=== PATIENT | female | born 1995 | race Caucasian/White ===

== ENCOUNTER 2018-09-07 15:23 | Emergency (ER) | payer OTHER, SELFPAY ==
[2018-09-07 15:26] VITALS: BP 163/101; PULSE 71; RESP 20; TEMP 36.6; O2SAT 98
[2018-09-07] MEDS: KETOROLAC 60 MG/2 ML VIAL IM (16:08)
--- NOTE | 2018-09-07 16:29 | ED_ITS ---
HPI - Back Pain/Injury <JEANMARIE Delarosa - Last Filed: 09/07/18 16:34> General Chief Complaint: Back Pain/Injury Stated Complaint: states bad nerve pain in her back Time Seen by Provider: 09/07/18 15:47 Source: patient Mode of arrival: ambulatory Limitations: no limitations History of Present Illness HPI Narrative: pt states that since her c section and epidural years ago, she get random back pain and numbness down R leg, toradol helps MD Complaint: back pain Onset (ago): day(s) (today) Duration: constant Similar Symptoms Previously: Yes Location: lumbar spine and sacrum Severity: moderate Quality: sharp and tingling Radiation: buttocks and right leg Relieving factors: none Exacerbating factors: movement and walking Context: other Associated symptoms: denies other symptoms Related Data Home Medications Medication Instructions Recorded Confirmed acetaminophen 1,000 mg PO TID #0 07/27/17 Previous Rx's Medication Instructions Recorded amoxicillin-pot clavulanate 875 mg PO BID 14 Days #0 tab 08/13/17 [Augmentin] ketorolac 10 mg PO Q6H PRN 5 Days #14 tab 09/07/18 Allergies Allergy/AdvReac Type Severity Reaction Status Date / Time No Known Allergies Allergy Uncoded 08/28/17 12:41 Review of Systems <JEANMARIE Delarosa - Last Filed: 09/07/18 16:34> Constitutional Reports as per HPI, Reports system reviewed and no additional complaints, except as docu and Denies weakness ENT Ears, Nose, Mouth, and Throat: Denies neck pain Cardiovascular Denies chest pain and Denies dyspnea Respiratory Denies dyspnea Gastrointestinal Gastrointestinal: Denies abdominal pain Genitourinary Denies hematuria, Denies difficulty voiding and Denies pelvic pain Musculoskeletal Denies abnormal gait, Reports back pain and Denies neck pain Neurologic Denies abnormal gait, Denies sensory deficit and Denies weakness PFSH <JEANMARIE Delarosa - Last Filed: 09/07/18 16:34> Social History Smoking Status: Never smoker Social History Smoking Status: Never smoker Exam <JEANMARIE Delarosa - Last Filed: 09/07/18 16:34> Initial Vital Signs Initial Vital Signs: Vital Signs Temperature 97.8 F 09/07/18 15:26 Pulse Rate 71 09/07/18 15:26 Respiratory Rate 20 09/07/18 15:26 Blood Pressure 163/101 H 09/07/18 15:26 Pulse Oximetry 98 09/07/18 15:26 Const General: cooperative, healthy appearing, comfortable, well developed and well groomed Nutritional Appearance: average body habitus Orientation: alert, awake and oriented x3 HENMT Head: normal to inspection and normocephalic Ears: hearing grossly normal bilaterally, external ears normal, TM's normal bilaterally and mastoids normal Nose: external nose normal and nares normal Face and sinus: normal facial exam, sinuses nontender and face symmetric Mouth: oral mucosae normal, lip normal, tongue normal, oropharynx normal and moist mucous membranes Teeth and gingiva: dentition normal and gingiva normal Throat: posterior oropharynx normal, tonsils normal and uvula midline Eyes General: appearance normal, both eyes and all related structures Visual Bell: normal visual bell by confrontation Eyelids: eyelids normal Conjunctivae: conjunctivae normal Sclera: sclerae normal Pupils: PERRL EOM: EOM intact bilaterally Neck Neck: normal visual inspection, full ROM, no meningeal signs, trachea midline, supple and No lymphadenopathy Chest Chest: normal inspection of the chest Resp Effort & Inspection: normal respiratory effort and able to speak in complete sentences Auscultation: clear to auscultation bilaterally Cardio Rate: regular rate Rhythm: regular rhythm Heart Sounds: S1 normal and S2 normal Back/Spine/Pelvis Back: normal to inspection, No back tenderness and No CVA tenderness Cervical Spine: cervical ROM normal Thoracic/Lumbar Spine: thoraco-lumbar ROM normal and No lumbar spinal tenderness Sacroiliac Joints: nontender Skin General: no rashes or lesions noted, elasticity normal, turgor normal and dry skin Neuro General: alert, awake, oriented x3 and meningeal signs present Cognition: normal cognition Speech: speech normal Gait: normal gait Motor: muscle tone normal throughout Sensory Exam: no sensory deficits noted Extrem General: normal to inspection and full ROM Psych Appearance: grossly normal and well kempt Mental Status: mental status grossly normal Speech and Movement: speech and movement normal Mood: congruent mood Affect: normal affect Attitude: cooperative Thought Process: normal Thought Content: normal Judgment: judgment good <Naomi Stahl, DO - Last Filed: 09/08/18 07:48> Initial Vital Signs Initial Vital Signs: Vital Signs Temperature 97.8 F 09/07/18 15:26 Pulse Rate 71 09/07/18 15:26 Respiratory Rate 20 09/07/18 15:26 Blood Pressure 163/101 H 09/07/18 15:26 Pulse Oximetry 98 09/07/18 15:26 Course <JEANMARIE Delarosa - Last Filed: 09/07/18 16:34> Orders Ordered: Discontinued Medications Ketorolac Tromethamine (Toradol) 60 mg IM NOW ONE Stop: 09/07/18 15:48 Last Admin: 09/07/18 16:08 Dose: 60 mg Vital Signs - 8 hr 09/07/18 15:26 Temperature 97.8 F Pulse Rate 71 Respiratory Rate 20 Blood Pressure 163/101 H Pulse Oximetry 98 <Naomi Stahl DO - Last Filed: 09/08/18 07:48> Orders Ordered: Discontinued Medications Ketorolac Tromethamine (Toradol) 60 mg IM NOW ONE Stop: 09/07/18 15:48 Last Admin: 09/07/18 16:08 Dose: 60 mg Vital Signs - 8 hr 09/07/18 15:26 Temperature 97.8 F Pulse Rate 71 Respiratory Rate 20 Blood Pressure 163/101 H Pulse Oximetry 98 MDM - Back Pain/Injury <JEANMARIE Delarosa - Last Filed: 09/07/18 16:34> Differential Diagnosis Differential diagnosis: Likely lumbar radiculopathy, sciatica, strain of lumbar region, renal colic and pyelonephritis Discharge Plan Departure Patient Disposition: Home Clinical Impression: Low back pain, Sciatica Discharge Date/Time: 09/07/18 16:49 Interventions: ED Discharge Assessment Last Done: 09/07/18 16:47 Instructions: DI for Low Back Pain, DI for Back Pain With Sciatica Prescriptions: New ketorolac 10 mg tablet 10 mg PO Q6H PRN (Reason: pain) 5 Days Qty: 14 RF: 0 No Action acetaminophen 325 MG tablet 1,000 mg PO TID Qty: 0 RF: 0 amoxicillin-pot clavulanate [Augmentin] 875 MG/125 MG tablet 875 mg PO BID 14 Days Qty: 0 RF: 0 Referrals: Donato Espinoza PA-C [Advanced Remote Sensing Technologist] - Tru,Denilson, PA-C [Advanced Remote Sensing Technologist] - Cayden Rivera MD [Non-Staff] - Kemi Saunders DO [Physician] - (follow up in 3-5 days as needed for continued back pain) <Naomi Stahl DO - Last Filed: 09/08/18 07:48> Cosign ED Attending Cosignature Attestation: I was immediately available in the department for consultation. This documentation has been reviewed and I agree with assessment and plan. Supervised by Naomi Stahl DO
[2018-09-07 16:47] VITALS: BP 169/105; PULSE 60; O2SAT 100
== END 2018-09-07 16:49 | disposition home or self-care (01) ==
PROVIDERS: Emergency Provider Nurse Practitioner
DX: M54.30 Sciatica, unspecified side (principal)
CPT/HCPCS: 96372; 99282; 99283; J1885

== ENCOUNTER 2020-01-20 13:11 | Emergency (ER) | payer OTHER, SELFPAY ==
[2020-01-20] VITALS (12 sets, daily range): BP systolic 128–182; BP diastolic 74–99; PULSE 48–60; RESP 18–20; TEMP 36.9; O2SAT 95–100
--- NOTE | 2020-01-20 14:42 | ED.PREGNANCY ---
HPI - <Carolee aGleano PA-C - Last Filed: 01/20/20 21:17> General Chief complaint: Urogenital-Female Stated complaint: right pelvic pain/nausea/chills x2 days Time Seen by Provider: 01/20/20 14:41 Source: patient Mode of arrival: Ambulatory History of Present Illness HPI Narrative: 24-year-old , hx c-sections and tubal ligation presents with complaints of right lower quadrant abdominal pain and nausea, and reduced appetite in the setting of her period. She has been having very sharp stabbing feeling pains on the right side low down near her head that have become so intense at times that she has had to cry due to the pain, this occurred on Saturday evening and then again when she was driving. Her current period started on Saturday. She says her pain is about a 2 or 3/10 at present but was up to at least a 7/10 when she was having the intense sharp pains. These intense sharp pains have been continuing on and off today which is why she came in. she has been having nausea on and off all day today and for the last few days, she thinks that could be associated with pain. She states that she has been having more intense pain with her periods for the last 2 or 3 months, she says that they are regular occurring once a month lasting for 5-7 days. She says that they are very heavy she goes through 5-7 super plus tampons or pads in a day, and this has not changed, it has been this way for many years for her, she does endorse some yellowish looking and possibly a little bit smelly vaginal discharge that has been present on and off for the past few months as well. She has no concern for sexually transmitted infections and does not want be tested for these today. She is willing to be tested for bacterial vaginosis. She has been having normal bowel movements, her last 1 was this morning, she has been eating and drinking fine with a good appetite, she has no nausea or vomiting no urinary symptoms no flank pain. MD Complaint: abdominal pain (pelvic pain) and vaginal bleeding (menstrauting) Onset (ago): day(s) (4) Pain Consistency: constant and intermittent (sharp pains are intermittent) Location: pelvis Severity: moderate Severity scale (1-10): 3 Quality: Aching and Sharp Relieving factors: none Exacerbating factors: none Associated symptoms: nausea Vaginal discharge: other (has had some yellowish discharge sometimes in last few months that sometimes smells bad) Vaginal bleeding: heavy (normal period for her) Date of Last Menstrual Period: 01/17/20 Patient : No OB History - Previous Pregnancies: other (2 previous c-sections; tubal ligation) Related Data Home Medications Medication Instructions Recorded Confirmed acetaminophen 1,000 mg PO TID PRN #0 07/27/17 01/20/20 Previous Rx's Medication Instructions Recorded metronidazole 500 mg PO BID 7 Days #14 tab 01/20/20 ondansetron HCl [Zofran] 4 mg PO Q8H PRN #20 tab 01/20/20 oxycodone-acetaminophen [Percocet] 1 tab PO Q8H PRN #14 tab 01/20/20 Allergies Allergy/AdvReac Type Severity Reaction Status Date / Time No Known Allergies Allergy Uncoded 08/28/17 12:41 Review of Systems <Carolee Galeano PA-C - Last Filed: 01/20/20 21:17> Review of Systems Narrative: GENERAL: Denies chills, fatigue, malaise, fever, sweats. HEENT: Denies sinus pain, ear pain, sore throat, difficulty swallowing, dizziness. RESPIRATORY: Denies dyspnea, cough, wheezing, hemoptysis, sputum. CARDIOVASCULAR: Denies chest pain, palpitations, orthopnea, edema, GASTROINTESTINAL: Positive for nausea, and reduced appetite, negative for vomiting, positive for right-sided low pelvic abdominal pain, diarrhea, constipation, melena. : Denies dysuria, frequency, incontinence, hematuria, urinary retention. MUSCULOSKELETAL: denies weakness, joint pain, or bony pain SKIN: Denies rash, skin lesions, or other NEUROLOGIC: Denies weakness, headache, numbness, change in speech, confusion, seizures, incoordination. PSYCHIATRIC: No concerning psychosocial issues. 12 point review of systems is negative except for those stated above PMFSH - <Carolee Galeano PA-C - Last Filed: 01/20/20 21:17> Past Medical History Date of Last Menstrual Period: 01/17/20 Patient : No Exam <Carolee Galeano PA-C - Last Filed: 01/20/20 21:17> Narrative Exam Narrative: GENERAL: 24 year old patient appears stated age. Well-nourished, well-developed patient, in mild distress. HEAD: Atraumatic. Normocephalic. EYES: Pupils equal round and reactive. Extraocular motions intact. No scleral icterus. No injection or drainage. ENT: Nose without bleeding, purulent drainage. Throat without erythema, tonsillar hypertrophy or exudate. Airway patent. NECK: Trachea midline. Non tender CARDIOVASCULAR: Regular rate and rhythm without murmurs, gallops, or rubs. RESPIRATORY: Clear to auscultation. Breath sounds equal bilaterally. No wheezes, rales, or rhonchi. GASTROINTESTINAL: There is slight tenderness over the right pelvis area just medial to the ASIS, Abdomen otherwise soft, non-tender, nondistended. : FRANK Croft present for pelvic exam as online tutor. External genitalia are normal in appearance, on speculum exam there is scant dark blood in the vaginal vault, the vaginal veliz are pink without lesions, there is no notable vaginal discharge, cervix is normal in appearance. On bimanual exam there is right adnexal tenderness, no adnexal tenderness on the left, no cervical motion tenderness. EXTREMITIES: No edema or joint tenderness. BACK: Nontender without deformity or crepitance. No CVA/flank tenderness. NEURO: AOx3. SKIN: No rash or erythema of visible areas Initial Vital Signs Initial Vital Signs: Vital Signs Temperature 98.4 F 01/20/20 13:21 Pulse Rate 55 L 01/20/20 13:21 Respiratory Rate 18 01/20/20 13:21 Blood Pressure 157/99 H 01/20/20 13:21 Pulse Oximetry 100 01/20/20 13:21 <Silvestre Harris DO - Last Filed: 01/20/20 23:49> Initial Vital Signs Initial Vital Signs: Vital Signs Temperature 98.4 F 01/20/20 13:21 Pulse Rate 55 L 01/20/20 13:21 Respiratory Rate 18 01/20/20 13:21 Blood Pressure 157/99 H 01/20/20 13:21 Pulse Oximetry 100 01/20/20 13:21 Scores <Carolee Galeano PA-C - Last Filed: 01/20/20 21:17> GCS Phyllis coma scale eye opening: Spontaneous Covert coma scale verbal response: Orientated Covert coma scale motor response: Obey commands Phyllis coma scale total score: 15 Course <Carolee Galeano PA-C - Last Filed: 01/20/20 21:17> Orders Ordered: ED Orders 01/20/20 15:09 Complete Blood Count AUTO DIFF Stat Comprehensive Metabolic Panel Stat Lipase Stat Partial Thromboplastin Time Stat Prothrombin Time INR Stat 01/20/20 15:33 US pelvic complete Stat 01/20/20 18:05 Wet Prep Tric BV Manuela Stat Discontinued Medications Ketorolac Tromethamine (Toradol) 15 mg IV NOW ONE Stop: 01/20/20 18:15 Last Admin: 01/20/20 18:29 Dose: 15 mg Documented by: ALEENA Ondansetron HCl (Zofran) 4 mg IV NOW ONE Stop: 01/20/20 15:18 Last Admin: 01/20/20 15:25 Dose: 4 mg Documented by: KPEARSO Vital Signs Vital signs: Vital Signs - 8 hr 01/20/20 17:06 01/20/20 17:07 01/20/20 17:30 Pulse Rate 60 Respiratory Rate Blood Pressure 146/87 H 147/81 H Pulse Oximetry 95 100 100 01/20/20 18:13 01/20/20 18:30 01/20/20 19:33 Pulse Rate 57 L 51 L 58 L Respiratory Rate 20 Blood Pressure 128/78 159/85 H Pulse Oximetry 99 100 100 <Silvestre Harris DO - Last Filed: 01/20/20 23:49> Orders Ordered: ED Orders 01/20/20 15:09 Complete Blood Count AUTO DIFF Stat Comprehensive Metabolic Panel Stat Lipase Stat Partial Thromboplastin Time Stat Prothrombin Time INR Stat 01/20/20 15:33 US pelvic complete Stat 01/20/20 18:05 Wet Prep Tric BV Manuela Stat Discontinued Medications Ketorolac Tromethamine (Toradol) 15 mg IV NOW ONE Stop: 01/20/20 18:15 Last Admin: 01/20/20 18:29 Dose: 15 mg Documented by: PATONEOk Ondansetron HCl (Zofran) 4 mg IV NOW ONE Stop: 01/20/20 15:18 Last Admin: 01/20/20 15:25 Dose: 4 mg Documented by: KPEARSO Vital Signs Vital signs: Vital Signs - 8 hr 01/20/20 17:06 01/20/20 17:07 01/20/20 17:30 Pulse Rate 60 Respiratory Rate Blood Pressure 146/87 H 147/81 H Pulse Oximetry 95 100 100 01/20/20 18:13 01/20/20 18:30 01/20/20 19:33 Pulse Rate 57 L 51 L 58 L Respiratory Rate 20 Blood Pressure 128/78 159/85 H Pulse Oximetry 99 100 100 MDM - OB/Uterine Contractions <Carolee Galeano PA-C - Last Filed: 01/20/20 21:17> Lab Data Result diagrams: 01/20/20 15:09 01/20/20 15:09 Labs: Lab Results 01/20/20 01/20/20 01/20/20 Range/Units 14:31 15:09 15:09 WBC 5.4 (4.5-11.0) X10^3/uL RBC 4.30 (4.0-5.2) X10^6/uL Hgb 11.2 L (12.0-16.0) g/dL Hct 34.4 L (36-46) % MCV 79.9 L (80-100) fL MCH 26.0 (26-34) PG MCHC 32.5 (30-36) % RDW 18.8 H (11.6-14.8) % Plt Count 170 (150-400) X10^3/uL Neut % (Auto) 65.3 (50-75) % Lymph % (Auto) 25.8 (25-40) % [place] % (Auto) 4.8 (3-14) % Eos % (Auto) 3.1 (2-4) % Baso % (Auto) 1.0 (0-2) % Neut # (Auto) 3500 (0204-0567) /uL Lymph # (Auto) 1400 (8678-3736) /uL [place] # (Auto) 300 (0-900) /uL Eos # (Auto) 200 (0-450) /uL Baso # (Auto) 100 (0-100) /uL PT 13.2 H (10.1-12.7) SECONDS INR 1.2 (0.9-1.3) APTT 35 (26.4-36.2) SECONDS Sodium (137-145) mmol/L Potassium (3.4-5.1) mmol/L Chloride (98-107) mmol/L Carbon Dioxide (22-32) mmol/L BUN (7-17) mg/dL Creatinine (0.52-1.04) mg/dL Estimated GFR (>60) mL/min BUN/Creatinine Ratio (6-22) Glucose (70-100) mg/dL Calcium (8.4-10.2) mg/dL Total Bilirubin (0.2-1.3) mg/dL AST (14-36) IU/L ALT (<35) IU/L Alkaline Phosphatase (38-126) U/L Total Protein (6.3-8.2) g/dL Albumin (3.5-5.0) g/dL Globulin (1.7-4.1) g/dL Albumin/Globulin Ratio (1.0-2.8) Lipase (23-300) U/L Ur Chlamydia DNA (PCR) Not detected N gonorrhoeae DNA (PCR) Not detected 01/20/20 Range/Units 15:09 WBC (4.5-11.0) X10^3/uL RBC (4.0-5.2) X10^6/uL Hgb (12.0-16.0) g/dL Hct (36-46) % MCV (80-100) fL MCH (26-34) PG MCHC (30-36) % RDW (11.6-14.8) % Plt Count (150-400) X10^3/uL Neut % (Auto) (50-75) % Lymph % (Auto) (25-40) % [place] % (Auto) (3-14) % Eos % (Auto) (2-4) % Baso % (Auto) (0-2) % Neut # (Auto) (9915-8828) /uL Lymph # (Auto) (9884-8534) /uL [place] # (Auto) (0-900) /uL Eos # (Auto) (0-450) /uL Baso # (Auto) (0-100) /uL PT (10.1-12.7) SECONDS INR (0.9-1.3) APTT (26.4-36.2) SECONDS Sodium 138 (137-145) mmol/L Potassium 4.0 (3.4-5.1) mmol/L Chloride 105 (98-107) mmol/L Carbon Dioxide 26 (22-32) mmol/L BUN 11 (7-17) mg/dL Creatinine 0.72 (0.52-1.04) mg/dL Estimated GFR > 60.0 (>60) mL/min BUN/Creatinine Ratio 15.3 (6-22) Glucose 82 (70-100) mg/dL Calcium 9.3 (8.4-10.2) mg/dL Total Bilirubin 0.5 (0.2-1.3) mg/dL AST 23 (14-36) IU/L ALT 13 (<35) IU/L Alkaline Phosphatase 40 (38-126) U/L Total Protein 7.3 (6.3-8.2) g/dL Albumin 4.6 (3.5-5.0) g/dL Globulin 2.7 (1.7-4.1) g/dL Albumin/Globulin Ratio 1.7 (1.0-2.8) Lipase 38 (23-300) U/L Ur Chlamydia DNA (PCR) N gonorrhoeae DNA (PCR) Point of Care Testing Test Results Negative Urine Dip Bedside Urine Glucose Negative Bedside Urine Bilirubin - Negative Bedside Urine Ketone - Negative Urine Specific [place] 1.010 Bedside Urine Occult Blood + Bedside Urine pH 6.0 Bedside Urine Protein - Negative Bedside Urine Urobilinogen - Negative Bedside Urine Nitrite - Negative Bedside Urine Leukocytes - Negative Esterase Imaging Data US - WEB DEVELOPER PROGRAMMER: Attestation: I personally reviewed and interpreted this imaging study as follows: Radiologist's Impression: [address] [address] Ultrasound Report Signed Patient: Melinda Atkins LMR#: [id number] : 1995Acct:[id number] Age/Sex: 24 / FDate of Service: 01/20/20 Loc: ED Accession Number: [id number] Procedure: US pelvic complete Ordering Provider: Carolee Galeano P.A-C PROCEDURE: US PELVIC COMPLETE INDICATIONS: R sharp intermittent pelvic pain, hx tubal ligation/c-sections TECHNIQUE: Real-time scanning was performed of the pelvic organs, with image documentation. Additional endovaginal scanning was necessary due to incomplete visualization of the adnexal and endometrial structures by transabdominal scanning. COMPARISON: None. FINDINGS: Transabdominal scanning: A moderate amount of free pelvic fluid is seen within the pelvic cul-de-sac at the area of the patient's tenderness. Limited scanning through the kidneys shows no hydronephrosis. Endovaginal scanning: Uterus: Uterus is normal in size at 7.3 x 4.6 x 6.4 cm. The endometrium measures 7 mm in combined thickness. Ovaries: The right ovary measures 3.9 x 1.6 x 1.6 cm. The left ovary measures 3.1 x 1.6 x 1.6 cm. The ovaries have a normal sonographic appearance. No adnexal masses are seen. IMPRESSION: There is moderate free fluid seen within the pelvic cul-de-sac at the patient's area of tenderness. No additional pelvic ultrasound abnormality is seen. Dictated by: Memo Centeno M.D. on 01/20/2020 at 15:59 Approved by: Memo Centeno M.D. on 01/20/2020 at 16:01 MDM Narrative Medical decision making narrative: This is a 24-year-old woman with a history of heavy regular periods, 2 C sections and tubal ligation currently not who presents with complaint of right lower quadrant pain in the setting of her. Associated with nausea and reduced appetite. On initial exam she had very mild pain, labs were unremarkable, vitals unremarkable, after ultrasound exam the patient's pain increased significantly to a 5/10 she was provided with pain medicine, pelvic exam was performed and was remarkable only for right adnexal tenderness. Ultrasound revealed moderate free fluid in the in the right adnexa, no other abnormal findings. Did the findings of labs and imaging were discussed with patient, discussed extensively the value of obtaining testing for STIs, which the patient initially declined multiple times. While I have low suspicion that she has a PID based on her exam, this will be important to rule out, has as there are was not a clear cause for her pain. And she did have possibly abnormal/non-physiologic ultrasound findings with the free fluid. Discussed CT with the patient, however I do not feel strongly that this is warranted at this time, patient also does not feel strongly that she wants to have a CT today, she is very comfortable with the plan to return to the emergency department with any ongoing or worsening or new symptoms, will follow-up in the next 48 hours with her primary care, will also seek woman's health provider for follow-up. Is possible that her nausea and lack of appetite are hormone related associated with her period, however there is certainly also the possibility that she does have an early infectious abdominal or pelvic process that has simply not yielded abnormal findings on labs or vitals at this time. Her G and C is pending at time of discharge. Emergency return precautions provided, all questions answered. <Silvestre Harris DO - Last Filed: 01/20/20 23:49> Lab Data Labs: Lab Results 01/20/20 01/20/20 01/20/20 Range/Units 14:31 15:09 15:09 WBC 5.4 (4.5-11.0) X10^3/uL RBC 4.30 (4.0-5.2) X10^6/uL Hgb 11.2 L (12.0-16.0) g/dL Hct 34.4 L (36-46) % MCV 79.9 L (80-100) fL MCH 26.0 (26-34) PG MCHC 32.5 (30-36) % RDW 18.8 H (11.6-14.8) % Plt Count 170 (150-400) X10^3/uL Neut % (Auto) 65.3 (50-75) % Lymph % (Auto) 25.8 (25-40) % [place] % (Auto) 4.8 (3-14) % Eos % (Auto) 3.1 (2-4) % Baso % (Auto) 1.0 (0-2) % Neut # (Auto) 3500 (8621-4991) /uL Lymph # (Auto) 1400 (7149-6189) /uL [place] # (Auto) 300 (0-900) /uL Eos # (Auto) 200 (0-450) /uL Baso # (Auto) 100 (0-100) /uL PT 13.2 H (10.1-12.7) SECONDS INR 1.2 (0.9-1.3) APTT 35 (26.4-36.2) SECONDS Sodium (137-145) mmol/L Potassium (3.4-5.1) mmol/L Chloride (98-107) mmol/L Carbon Dioxide (22-32) mmol/L BUN (7-17) mg/dL Creatinine (0.52-1.04) mg/dL Estimated GFR (>60) mL/min BUN/Creatinine Ratio (6-22) Glucose (70-100) mg/dL Calcium (8.4-10.2) mg/dL Total Bilirubin (0.2-1.3) mg/dL AST (14-36) IU/L ALT (<35) IU/L Alkaline Phosphatase (38-126) U/L Total Protein (6.3-8.2) g/dL Albumin (3.5-5.0) g/dL Globulin (1.7-4.1) g/dL Albumin/Globulin Ratio (1.0-2.8) Lipase (23-300) U/L Ur Chlamydia DNA (PCR) Not detected N gonorrhoeae DNA (PCR) Not detected 01/20/20 Range/Units 15:09 WBC (4.5-11.0) X10^3/uL RBC (4.0-5.2) X10^6/uL Hgb (12.0-16.0) g/dL Hct (36-46) % MCV (80-100) fL MCH (26-34) PG MCHC (30-36) % RDW (11.6-14.8) % Plt Count (150-400) X10^3/uL Neut % (Auto) (50-75) % Lymph % (Auto) (25-40) % [place] % (Auto) (3-14) % Eos % (Auto) (2-4) % Baso % (Auto) (0-2) % Neut # (Auto) (2848-1682) /uL Lymph # (Auto) (6795-0839) /uL [place] # (Auto) (0-900) /uL Eos # (Auto) (0-450) /uL Baso # (Auto) (0-100) /uL PT (10.1-12.7) SECONDS INR (0.9-1.3) APTT (26.4-36.2) SECONDS Sodium 138 (137-145) mmol/L Potassium 4.0 (3.4-5.1) mmol/L Chloride 105 (98-107) mmol/L Carbon Dioxide 26 (22-32) mmol/L BUN 11 (7-17) mg/dL Creatinine 0.72 (0.52-1.04) mg/dL Estimated GFR > 60.0 (>60) mL/min BUN/Creatinine Ratio 15.3 (6-22) Glucose 82 (70-100) mg/dL Calcium 9.3 (8.4-10.2) mg/dL Total Bilirubin 0.5 (0.2-1.3) mg/dL AST 23 (14-36) IU/L ALT 13 (<35) IU/L Alkaline Phosphatase 40 (38-126) U/L Total Protein 7.3 (6.3-8.2) g/dL Albumin 4.6 (3.5-5.0) g/dL Globulin 2.7 (1.7-4.1) g/dL Albumin/Globulin Ratio 1.7 (1.0-2.8) Lipase 38 (23-300) U/L Ur Chlamydia DNA (PCR) N gonorrhoeae DNA (PCR) Point of Care Testing Test Results Negative Urine Dip Bedside Urine Glucose Negative Bedside Urine Bilirubin - Negative Bedside Urine Ketone - Negative Urine Specific [place] 1.010 Bedside Urine Occult Blood + Bedside Urine pH 6.0 Bedside Urine Protein - Negative Bedside Urine Urobilinogen - Negative Bedside Urine Nitrite - Negative Bedside Urine Leukocytes - Negative Esterase Discharge Plan Departure Patient Disposition: Home Clinical Impression: Pelvic pain, Bacterial vaginosis Discharge Date/Time: 01/20/20 19:34 Instructions: DI for Pelvic Pain Activity Restrictions/Additional Instructions: Thank you for letting us to be part of your care in the emergency department today. All of your labs were looking good, it does look like you have a mild bacterial vaginosis, and we are still waiting for a couple of your urine labs to results. If these are positive you will get a call back. Your ultrasound of your pelvis looked good you do have a moderate amount of free fluid in the area where you are having pain, this can be a normal finding and it may resolve on its own but it could indicate inflammation or possibly infection. As we discussed, based on your history, your labs and your exam we are not pursuing a CT scan today. However if your symptoms do not improve or if you have any new or worsening symptoms it is very important that you be re-evaluated. It is always possible that even though things looked good today in terms of your labs and your ultrasound your pain and symptoms could be related to an early process that could worsen and would need medical treatment. I want you to follow-up with your primary care provider or a woman's health provider in the next 48-72 hours for re-evaluation. And please come back to the emergency department if you have new or worsening symptoms. And providing and antinausea medicine a medicine for your bacterial vaginosis and is short course of stronger pain medicine although generally I recommend alternating Tylenol and ibuprofen for pain. There is no evidence of an emergent or life threatening illness at this time, but follow up with your doctor in 1-2 days is recommended nonetheless to continue to rule out serious underlying causes of your symptoms. Please call the office for an appointment. Please return to the Emergency Department for any worsening or persistent symptoms. Please take medications as directed. Prescriptions: New metronidazole 500 mg tablet 500 mg PO BID 7 Days Qty: 14 RF: 0 oxycodone-acetaminophen [Percocet] 5-325 mg tablet 1 tab PO Q8H PRN (Reason: pain) Qty: 14 RF: 0 ondansetron HCl [Zofran] 4 mg tablet 4 mg PO Q8H PRN (Reason: nausea and vomiting) Qty: 20 RF: 0 No Action acetaminophen 325 MG tablet 1,000 mg PO TID PRN (Reason: pain / fever) Qty: 0 RF: 0 <Silvestre Harris DO - Last Filed: 01/20/20 23:49> Cosign ED Attending Cosignature Attestation: I was immediately available in the department for consultation. This documentation has been reviewed and I agree with assessment and plan. Supervised by Silvestre Harris DO
[2020-01-20 15:16] LABS: Add Manual Diff / Slide Review NO; Basophils Absolute Auto 100 /uL (0-100); Eosinophils Absolute Auto 200 /uL (0-450); Eosinophils Percent Auto 3.1 % (2-4); Hematocrit 34.4 % (36-46); Hemoglobin 11.2 g/dL (12.0-16.0); Lymphocytes Absolute Auto 1400 /uL (1100-4500); Lymphocytes Percent Auto 25.8 % (25-40); Mean Corpuscular HGB Conc 32.5 % (30-36); Mean Corpuscular Volume 79.9 fL (80-100); Monocytes Absolute Auto 300 /uL (0-900); Monocytes Percent Auto 4.8 % (3-14); Neutrophils Absolute Auto 3500 /uL (1500-7000); Neutrophils Percent Auto 65.3 % (50-75); Platelet Count 170 X10^3/uL (150-400); Red Cell Distribution Width 18.8 % (11.6-14.8); White Blood Cell Count 5.4 X10^3/uL (4.5-11.0)
[2020-01-20 15:24] LABS: INR 1.2 (0.9-1.3); Prothrombin Time 13.2 SECONDS (10.1-12.7)
[2020-01-20] MEDS: ONDANSETRON 4 MG/2 ML INJ IV (15:25)
[2020-01-20 15:27] LABS: PTT Partial Thromboplastin Tim 35 SECONDS (26.4-36.2)
[2020-01-20 15:33] LABS: Alanine Aminotransferase 13 IU/L (<35); Albumin 4.6 g/dL (3.5-5.0); Albumin Globulin Ratio 1.7 (1.0-2.8); Alkaline Phosphatase 40 U/L (38-126); Aspartate Aminotransferase 23 IU/L (14-36); BUN Creatinine Ratio 15.3 (6-22); Bilirubin Total 0.5 mg/dL (0.2-1.3); Blood Urea Nitrogen 11 mg/dL (7-17); Calcium 9.3 mg/dL (8.4-10.2); Carbon Dioxide 26 mmol/L (22-32); Chloride 105 mmol/L (98-107); Estimated Glomerular Filt Rate > 60.0 mL/min (>60); Globulin 2.7 g/dL (1.7-4.1); Glucose 82 mg/dL (70-100); HEMOLYSIS < 15 (0-50); Lipase 38 U/L (23-300); Sodium 138 mmol/L (137-145); Total Protein 7.3 g/dL (6.3-8.2)
--- NOTE | 2020-01-20 15:33 | DI.US.S_ITS ---
PROCEDURE: US PELVIC COMPLETE INDICATIONS: R sharp intermittent pelvic pain, hx tubal ligation/c-sections TECHNIQUE: Real-time scanning was performed of the pelvic organs, with image documentation. Additional endovaginal scanning was necessary due to incomplete visualization of the adnexal and endometrial structures by transabdominal scanning. COMPARISON: None. FINDINGS: Transabdominal scanning: A moderate amount of free pelvic fluid is seen within the pelvic cul-de-sac at the area of the patient's tenderness. Limited scanning through the kidneys shows no hydronephrosis. Endovaginal scanning: Uterus: Uterus is normal in size at 7.3 x 4.6 x 6.4 cm. The endometrium measures 7 mm in combined thickness. Ovaries: The right ovary measures 3.9 x 1.6 x 1.6 cm. The left ovary measures 3.1 x 1.6 x 1.6 cm. The ovaries have a normal sonographic appearance. No adnexal masses are seen. IMPRESSION: There is moderate free fluid seen within the pelvic cul-de-sac at the patient's area of tenderness. No additional pelvic ultrasound abnormality is seen. Dictated by: Memo Centeno M.D. on 01/20/2020 at 15:59 Approved by: Memo Centeno M.D. on 01/20/2020 at 16:01
[2020-01-20] MEDS: KETOROLAC 60 MG/2 ML VIAL 15 MG IV (18:29)
[2020-01-20 21:03] LABS: Urine N gonorrhoeae NOT DETECTED
[2020-01-20 21:09] LABS: Urine Chlamydia NOT DETECTED
== END 2020-01-20 19:34 | disposition home or self-care (01) ==
PROVIDERS: Emergency Medicine; Emergency Provider Student in an Organized Health Care Education/Training Program
DX: N76.0 Acute vaginitis (principal); R10.2 Pelvic and perineal pain; R11.0 Nausea
CPT/HCPCS: 36415; 76856; 80053; 81003; 81025; 83690; 85025; 85610; 85730; 87210; 87491; 87591; 96374; 96375; 99284; J1885; J2405

== ENCOUNTER 2021-04-09 08:10 | Emergency (ER) | payer OTHER, SELFPAY ==
--- NOTE | 2021-04-09 08:30 | ED_ITS ---
HPI - General Adult General Chief complaint: Upper Respiratory Symptoms Stated complaint: Trouble swallowing, sore throat Time Seen by Provider: 04/09/21 08:11 Source: patient Mode of arrival: Ambulatory Limitations: no limitations History of Present Illness HPI narrative: Patient is a otherwise healthy 25-year-old female who is here for evaluation of a sore throat, problems swallowing her saliva because of the discomfort, right ear pain. No fevers. No cough. No problems breathing. It is both size in her throat but the right seems to be worse than the left. Related Data Home Medications Medication Instructions Recorded Confirmed acetaminophen 325 mg tablet 1,000 mg PO TID PRN #0 07/27/17 01/20/20 Previous Rx's Medication Instructions Recorded ondansetron HCl 4 mg tablet 4 mg PO Q8H PRN #20 tab 01/20/20 (Zofran) oxycodone-acetaminophen 5 mg-325 1 tab PO Q8H PRN #14 tab 01/20/20 mg tablet (Percocet) Allergies Allergy/AdvReac Type Severity Reaction Status Date / Time No Known Drug Allergies Allergy Verified 04/09/21 08:51 Review of Systems Constitutional Constitutional: Denies fever(s) ENT Ears, Nose, Mouth, and Throat: Reports as per HPI Respiratory Respiratory: Reports as per HPI and Reports system reviewed and no additional complaints, except as documented Gastrointestinal Gastrointestinal: Reports system reviewed and no additional complaints, except as documented Integumentary/Breasts Skin/Breast: Reports system reviewed and no additional complaints, except as documented Hematologic/Lymphatic On Anticoagulants: No Patient History Medical History Low back pain Piriformis syndrome of left side Strep pharyngitis Social History Smoking Status: Current every day smoker Smoking Status: Current every day smoker Exam Initial Vital Signs Initial Vital Signs: Vital Signs Temperature 99.1 F 04/09/21 08:39 Pulse Rate 71 04/09/21 08:39 Respiratory Rate 18 04/09/21 08:39 Blood Pressure 132/92 H 04/09/21 08:39 Pulse Oximetry 100 04/09/21 08:39 HENMT Head: normal to inspection and normocephalic Ears: TM's normal bilaterally Nose: external nose normal Mouth: oral mucosae normal Teeth and gingiva: dentition normal Throat: uvula midline and abnormal tonsil bilaterally erythema and exudates Neck Lymphatic: lymphadenopathy (The lateral anterior cervical lymph nodes) Resp Effort & Inspection: normal respiratory effort Skin General: no rashes or lesions noted Neuro General: patient alert, patient awake and moves all extremities Extrem General: normal to inspection Psych Appearance: well kempt Course Orders Ordered: ED Orders 04/09/21 08:49 COVID19 -Nasal swab/Pre-Proc Stat 04/09/21 08:53 Throat Culture Stat Discontinued Medications Dexamethasone (Dexamethasone 10 Mg/Ml Vial) 10 mg PO NOW ONE Stop: 04/09/21 08:49 Last Admin: 04/09/21 09:20 Dose: 10 mg Documented by: Penicillin G Benzathine (Penicillin G Benzathine 1,200,000 Unit/2 Ml Syringe) 1,200,000 unit IM NOW ONE Stop: 04/09/21 08:49 Last Admin: 04/09/21 09:20 Dose: 1,200,000 unit Documented by: Vital Signs Vital signs: Vital Signs - 8 hr 04/09/21 08:39 Temperature 99.1 F Pulse Rate 71 Respiratory Rate 18 Blood Pressure 132/92 H Pulse Oximetry 100 Medical Decision Making Lab Data Labs: Lab Results 04/09/21 Range/Units 09:07 SARS-CoV-2 (PCR) Negative (Negative) Point of Care Testing Rapid Strep A Negative Point of care testing: Point of Care Testing Rapid Strep A Negative MDM Narrative Medical decision making narrative: A Cent[facility] criteria 3. She did have a rapid strep test that was negative and we did obtain a throat culture. I did discuss options with the patient to include presumptively treating her for strep throat versus waiting for the culture to return. We did discuss the risks and benefits of this and the patient opted to be presumptively treated. We then discussed treatment options to include injection of penicillin verses oral antibiotics. The patient opted for the in jection. We will also treat with Decadron. 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 Patient was given return precautions and follow-up instructions. She expressed understanding and agreement. Discharge Plan Departure Patient Disposition: Home Clinical Impression: Pharyngitis Instructions: Sore Throat Activity Restrictions/Additional Instructions: You should be experiencing some improvement in the next couple days. Be sure to increase your fluid intake. You can take Tylenol for any fevers or body aches. Return to the emergency department for any new or worsening symptoms Prescriptions: No Action acetaminophen 325 MG tablet 1,000 mg PO TID PRN (Reason: pain / fever) Qty: 0 0RF oxycodone-acetaminophen [Percocet] 5-325 mg tablet 1 tab PO Q8H PRN (Reason: pain) Qty: 14 0RF ondansetron HCl [Zofran] 4 mg tablet 4 mg PO Q8H PRN (Reason: nausea and vomiting) Qty: 20 0RF
[2021-04-09 08:39] VITALS: BP 132/92; PULSE 71; RESP 18; TEMP 37.3; O2SAT 100; BMI 23.1
[2021-04-09] MEDS: PENICILLIN G BENZATHINE 1,200,000 UNIT/2 ML SYRINGE 1200000 UNIT IM (09:20)
[2021-04-09] MEDS: DEXAMETHASONE 10 MG/ML VIAL PO (09:20)
[2021-04-09 09:45] LABS: COVID19 -Nasal RAPID Negative (Negative)
[2021-04-09 10:02] VITALS: BP 117/74; PULSE 69; RESP 17; O2SAT 100
== END 2021-04-09 10:03 | disposition home or self-care (01) ==
PROVIDERS: Emergency Provider Emergency Medicine
DX: J02.9 Acute pharyngitis, unspecified (principal); Z20.822 Contact with and (suspected) exposure to COVID-19; F17.200 Nicotine dependence, unspecified, uncomplicated
CPT/HCPCS: 87070; 87077; 87147; 87635; 87880; 96372; 99283; 99284; C9803; J0561; J1100

== ENCOUNTER 2021-06-06 07:24 | Emergency (ER) | payer OTHER, SELFPAY ==
[2021-06-06 07:36] VITALS: PULSE 56; O2SAT 100
[2021-06-06 07:53] VITALS: BP 146/70; PULSE 52; RESP 18; TEMP 36.6; O2SAT 98; BMI 22.8
--- NOTE | 2021-06-06 07:56 | DI.RAD.S_ITS ---
PROCEDURE: XR CHEST 1V INDICATIONS: chest pain TECHNIQUE: One view of the chest was acquired. COMPARISON: None. FINDINGS: Surgical changes and devices: None. Lungs and pleura: Lungs are clear. No pleural effusions or pneumothorax. Mediastinum: Mediastinal contours appear normal. Heart size is normal. Bones and chest wall: No suspicious bony lesions. Overlying soft tissues appear unremarkable. IMPRESSION: No acute cardiopulmonary disease process. Dictated by: Dea Garner MD, PhD on 06/06/2021 at 8:06 Approved by: Dea Garner MD, PhD on 06/06/2021 at 8:07
[2021-06-06 08:00] VITALS: PULSE 52; RESP 21; O2SAT 100
--- NOTE | 2021-06-06 08:07 | ED_ITS ---
HPI - Syncope General Chief Complaint: Syncope Stated Complaint: fainted/convulsions/hit head Time Seen by Provider: 06/06/21 08:07 Source: patient Mode of arrival: Ambulatory Limitations: no limitations History of Present Illness HPI narrative: This is a 25-year-old female with known history of hypertension on lisinopril and iron supplements for anemia. Patient has been taking lisinopril for approximately 6 months. She is in process of the workup for her hypertension and she is quite young. Patient states today her had shoulder surgery yesterday they took off his sling and had moved his arm several time. She states she immediately felt lightheaded and nauseated sat down on the floor then went to the bathroom and sat down and passed out hitting her head. Patient states this occurred about an hour and half prior. She states she had a small amount of urine incontinence. No stool incontinence. She denies any chest pain or pressure. No shortness of breath. She has not had any persistent symptoms. She felt fine this morning when she woke. She has not had any abdominal, back flank pain. No dysuria urgency or frequency. No cold cough or congestion. She does have a little bit of headache after hitting her head. No numbness, tingling or weakness. She has felt a little bit lightheaded since being on lisinopril. She has had 1 prior syncopal episode when having sutures removed an d states she passed out hit her head and ended up having to have sutures in her head at that time. She states also when her initially broke his shoulder she states that made her feel very lightheaded as well. Patient has had x2 and a tubal ligation. No allergies. She vapes tobacco, no alcohol, no illicit. She is in the [employer] and he has primary care through them. Related Data Home Medications Medication Instructions Recorded Confirmed acetaminophen 325 mg tablet 1,000 mg PO TID PRN #0 07/27/17 01/20/20 Previous Rx's Medication Instructions Recorded ondansetron HCl 4 mg tablet 4 mg PO Q8H PRN #20 tab 01/20/20 (Zofran) oxycodone-acetaminophen 5 mg-325 1 tab PO Q8H PRN #14 tab 01/20/20 mg tablet (Percocet) Allergies Allergy/AdvReac Type Severity Reaction Status Date / Time No Known Drug Allergies Allergy Verified 06/06/21 07:53 Review of Systems Review of Systems ROS Unobtainable: All systems reviewed & are unremarkable except as noted in HPI and below Patient History Medical History Low back pain Piriformis syndrome of left side Strep pharyngitis Social History Smoking Status: Current every day smoker Smoking Status: Current every day smoker tobacco type: vaping alcohol intake frequency: a few times a week Substance Use Type: does not use Exam Narrative Exam Narrative: GEN: well nourished, well appearing female, alert and oriented x 3, patient appears to be in mild distress. HEENT: Atraumatic, pupils are equal round reactive to light, extraocular movements are intact, nares are clear, TMs are clear with no fluid, there is no conjunctival pallor. Throat is clear without any exudates, erythema, tonsillar enlargement or uvular deviation, no cervical vertebral tenderness. HEART: Regular rate and rhythm without murmur, clicks, rubs. LUNGS:Lungs clear to auscultation, no wheezes, rales, crackles, chest moves symmetrically ABD:bowel sounds normal, soft, non-tender, no guarding, rebound, rigidity, no masses noted, no hepatosplenomegaly :No CVA tenderness MSCL: Non-tender, no muscle atrophy, muscles strength 5/5 upper and lower extremities, full range of motion, normal gait NEURO:CN 2-12 intact, sensation normal SKIN: No rash, erythema or other skin changes. Initial Vital Signs Initial Vital Signs: Vital Signs Pulse Rate 56 L 06/06/21 07:36 Pulse Oximetry 100 06/06/21 07:36 Course Orders Ordered: ED Orders 06/06/21 07:40 Complete Blood Count AUTO DIFF Stat Comprehensive Metabolic Panel Stat Lipase Stat Magnesium Stat Troponin & CK Cardiac Panel Stat 06/06/21 07:48 EKG-12 Lead Stat 06/06/21 07:56 XR chest 1V Stat COVID19 -Nasal swab/Pre-Proc Stat Discontinued Medications Acetaminophen (Acetaminophen 325 Mg Tablet) 650 mg PO NOW ONE Stop: 06/06/21 09:01 Last Admin: 06/06/21 09:15 Dose: 650 mg Documented by: KENAN Vital Signs Vital signs: Vital Signs - 8 hr 06/06/21 08:00 06/06/21 08:30 06/06/21 09:00 Pulse Rate 52 L 54 L 56 L Respiratory Rate 21 22 22 Blood Pressure Pulse Oximetry 100 100 99 06/06/21 09:29 Pulse Rate Respiratory Rate Blood Pressure 136/87 Pulse Oximetry MDM - Syncope Lab Data Result diagrams: 06/06/21 07:40 06/06/21 07:40 Labs: Lab Results 06/06/21 06/06/21 06/06/21 Range/Units 07:40 07:40 07:56 WBC 4.6 (4.5-11.0) X10^3/uL RBC 4.26 (4.0-5.2) X10^6/uL Hgb 11.6 L (12.0-16.0) g/dL Hct 34.7 L (36-46) % MCV 81.6 (80-100) fL MCH 27.3 (26-34) PG MCHC 33.5 (30-36) % RDW 17.0 H (11.6-14.8) % Plt Count 163 (150-400) X10^3/uL Neut % (Auto) 45.3 L (50-75) % Lymph % (Auto) 40.7 H (25-40) % [place] % (Auto) 7.3 (3-14) % Eos % (Auto) 5.9 H (2-4) % Baso % (Auto) 0.8 (0-2) % Neut # (Auto) 2100 (7913-4374) /uL Lymph # (Auto) 1900 (3649-6427) /uL [place] # (Auto) 300 (0-900) /uL Eos # (Auto) 300 (0-450) /uL Baso # (Auto) 0 (0-100) /uL Sodium 138 (137-145) mmol/L Potassium 4.3 (3.4-5.1) mmol/L Chloride 107 (98-107) mmol/L Carbon Dioxide 26 (22-32) mmol/L BUN 13 (7-17) mg/dL Creatinine 0.71 (0.52-1.04) mg/dL Estimated GFR > 60.0 (>60) mL/min BUN/Creatinine Ratio 18.3 (6-22) Glucose 88 (70-100) mg/dL Calcium 9.0 (8.4-10.2) mg/dL Magnesium 2.0 (1.6-2.3) mg/dL Total Bilirubin 0.4 (0.2-1.3) mg/dL AST 27 (14-36) IU/L ALT 11 (<35) IU/L Alkaline Phosphatase 29 L (38-126) U/L Total Creatine Kinase 55 (30-135) U/L CK-MB (CK-2) TNP CK-MB (CK-2) Rel Index TNP Troponin I < 0.012 (0.01-0.034) ng/mL Total Protein 7.0 (6.3-8.2) g/dL Albumin 4.4 (3.5-5.0) g/dL Globulin 2.6 (1.7-4.1) g/dL Albumin/Globulin Ratio 1.7 (1.0-2.8) Lipase 46 (23-300) U/L SARS-CoV-2 (PCR) Negative (Negative) Imaging Data Chest x-ray: Radiologist's Impression: Launch?[place] [address] XRay Report Signed Patient: Melinda Atkins MR#: [id number] : 1995 Acct:[id number] Age/Sex: 25 / F Date of Service: 06/06/21 Loc: Accession Number: [id number] ?? Procedure: XR chest 1V Ordering Provider: Naomi Stahl D.O. PROCEDURE:? XR CHEST 1V ? INDICATIONS:? chest pain ? TECHNIQUE:? One view of the chest was acquired.? ? COMPARISON:? None. ? FINDINGS:? ? Surgical changes and devices:? None.? ? Lungs and pleura:? Lungs are clear.? No pleural effusions or pneumothorax.? ? Mediastinum:? Mediastinal contours appear normal.? Heart size is normal.? ? Bones and chest wall:? No suspicious bony lesions.? Overlying soft tissues appear unremarkable.? ? IMPRESSION:? No acute cardiopulmonary disease process. ? ? Dictated by: Dea Garner MD, PhD on 06/06/2021 at 8:06 ? ? Approved by: Dea Garner MD, PhD on 06/06/2021 at 8:07?? ECG Data Attestation: I personally reviewed and interpreted this ECG as follows: Prior ECG tracings: not available for review Interpretation: Sinus bradycardia with first-degree AV block. Rate of 57, P are 218 QRS 88 QTC 397. No acute ST change appreciated. No priors availabe for review. MDM Narrative Medical decision making narrative: This is a 25-year-old female with suspected vasovagal episode. Patient has had prior episodes when she had sutures removed and today her had shoulder surgery he is 1 day postop and had taken him out of his sling and working through range of motion when patient began to feel ill. Patient did have what sounds like a syncopal episode. EKG, chest x-ray and labs do not show major abnormalities. Patient has a mild headache which was treated with Tylenol. She does not have any acute changes her GCS or otherwise make me feel she has warrants a head CT patient discharged home with return precautions. Discharge Plan Departure Patient Disposition: Home Clinical Impression: Syncope Instructions: DI for Syncope in Adults (Fainting) Activity Restrictions/Additional Instructions: Follow-up with your physician for recheck. You may continue your medications as prescribed. You may take tylenol up to 650mg every 6 hours as needed. Please return for rapidly worsening headaches, persistent vomiting, passing out, new numbness, tingling or weakness, new chest pain or shortness of breath or other new or concerning symptoms. Prescriptions: No Action acetaminophen 325 MG tablet 1,000 mg PO TID PRN (Reason: pain / fever) Qty: 0 0RF oxycodone-acetaminophen [Percocet] 5-325 mg tablet 1 tab PO Q8H PRN (Reason: pain) Qty: 14 0RF ondansetron HCl [Zofran] 4 mg tablet 4 mg PO Q8H PRN (Reason: nausea and vomiting) Qty: 20 0RF
[2021-06-06 08:28] LABS: Add Manual Diff / Slide Review NO; Basophils Absolute Auto 0 /uL (0-100); Basophils Percent Auto 0.8 % (0-2); Eosinophils Absolute Auto 300 /uL (0-450); Eosinophils Percent Auto 5.9 % (2-4); Hematocrit 34.7 % (36-46); Hemoglobin 11.6 g/dL (12.0-16.0); Lymphocytes Absolute Auto 1900 /uL (1100-4500); Lymphocytes Percent Auto 40.7 % (25-40); Mean Corpuscular HGB Conc 33.5 % (30-36); Mean Corpuscular Hemoglobin 27.3 PG (26-34); Mean Corpuscular Volume 81.6 fL (80-100); Monocytes Absolute Auto 300 /uL (0-900); Monocytes Percent Auto 7.3 % (3-14); Neutrophils Absolute Auto 2100 /uL (1500-7000); Neutrophils Percent Auto 45.3 % (50-75); Platelet Count 163 X10^3/uL (150-400); Red Blood Cell Count 4.26 X10^6/uL (4.0-5.2); White Blood Cell Count 4.6 X10^3/uL (4.5-11.0)
[2021-06-06 08:30] VITALS: PULSE 54; RESP 22; O2SAT 100
[2021-06-06 08:30] LABS: COVID19 -Nasal RAPID Negative (Negative)
[2021-06-06 08:33] LABS: Troponin I < 0.012 ng/mL (0.01-0.034)
[2021-06-06 08:41] LABS: Alanine Aminotransferase 11 IU/L (<35); Albumin 4.4 g/dL (3.5-5.0); Albumin Globulin Ratio 1.7 (1.0-2.8); Alkaline Phosphatase 29 U/L (38-126); Aspartate Aminotransferase 27 IU/L (14-36); BUN Creatinine Ratio 18.3 (6-22); Bilirubin Total 0.4 mg/dL (0.2-1.3); Blood Urea Nitrogen 13 mg/dL (7-17); Carbon Dioxide 26 mmol/L (22-32); Chloride 107 mmol/L (98-107); Creatine Kinase 55 U/L (30-135); Estimated Glomerular Filt Rate > 60.0 mL/min (>60); Globulin 2.6 g/dL (1.7-4.1); Glucose 88 mg/dL (70-100); HEMOLYSIS < 15 (0-50); Lipase 46 U/L (23-300); Potassium 4.3 mmol/L (3.4-5.1); Sodium 138 mmol/L (137-145)
[2021-06-06 09:00] VITALS: PULSE 56; RESP 22; O2SAT 99
[2021-06-06] MEDS: ACETAMINOPHEN 325 MG TABLET 650 MG PO (09:15)
[2021-06-06 09:29] VITALS: BP 136/87
== END 2021-06-06 09:29 | disposition home or self-care (01) ==
PROVIDERS: Emergency Provider Emergency Medicine
DX: R55 Syncope and collapse (principal); F17.290 Nicotine dependence, other tobacco product, uncomplicated; Z20.822 Contact with and (suspected) exposure to COVID-19
CPT/HCPCS: 36415; 71045; 80053; 82550; 83690; 83735; 84484; 85025; 87635; 93005; 93010; 99284; C9803

== ENCOUNTER 2024-02-25 14:04 | Emergency (ER) | payer OTHER, SELFPAY ==
[2024-02-25 14:15] VITALS: BP 136/79; PULSE 74; RESP 16; TEMP 36.2; O2SAT 99; BMI 25.0
[2024-02-25] MEDS: LIDOCAINE 5% PATCH 1 EACH TOP (16:10)
[2024-02-25] MEDS: KETOROLAC 30 MG/ML VIAL IM (16:10)
[2024-02-25 16:18] VITALS: BP 126/68; PULSE 79; RESP 16; O2SAT 98
--- NOTE | 2024-03-02 18:34 | ED_ITS ---
HPI - Back Pain/Injury <Duran Swan PA-C - Last Filed: 03/02/24 18:39> General Chief Complaint: Back Pain/Injury Stated Complaint: Pinched nerve lower left back Time Seen by Provider: 02/25/24 15:03 Source: patient History of Present Illness HPI Narrative: 28-year-old female with no reported past medical history presents to the ED with 1 day of left-sided lower back pain. Patient states that she somehow twisted this morning, causing the back pain to start. Pain is in the left lower back, radiating down into the left leg. Patient had minimal improvement with ibuprofen. No numbness, tingling, weakness, urinary hesitancy, saddle p aresthesias. Related Data Home Medications Medication Instructions Recorded Confirmed acetaminophen 325 mg tablet 1,000 mg PO TID PRN pain / fever 07/27/17 01/20/20 ##0 Previous Rx's Medication Instructions Recorded ondansetron HCl 4 mg tablet 4 mg PO Q8H PRN nausea and 01/20/20 (Zofran) vomiting #20 tabs oxycodone-acetaminophen 5 mg-325 1 tab PO Q8H PRN pain #14 tabs 01/20/20 mg tablet (Percocet) Allergies Allergy/AdvReac Type Severity Reaction Status Date / Time No Known Drug Allergies Allergy Verified 02/25/24 14:17 Review of Systems <Duran Swan PA-C - Last Filed: 03/02/24 18:39> Constitutional Constitutional: Denies chills, Denies fatigue, Denies fever(s), Denies frequent falls, Denies lethargy and Denies weakness Eyes Eyes: Denies change in vision, Denies eye discharge, Denies irritation and Denies loss of vision ENT Ears, Nose, Mouth, and Throat: Denies change in voice, Denies dizziness, Denies neck pain, Denies sore throat and Denies throat swelling Cardiovascular Cardiovascular: Denies chest pain, Denies irregular heart rhythm, Denies lightheadedness, Denies palpitations, Denies dyspnea, Denies dyspnea on exertion and Denies orthopnea Respiratory Respiratory: Denies cough, Denies dyspnea, Denies dyspnea on exertion and Denies wheezing Gastrointestinal Gastrointestinal: Denies abdominal pain, Denies change in bowel habits, Denies diarrhea, Denies nausea and Denies vomiting Musculoskeletal Musculoskeletal: Reports back pain, Denies neck pain, Denies numbness and Reports radiating pain into limb Integumentary/Breasts Skin/Breast: Denies pruritus, Denies erythema, Denies rash and Denies wounds Neurologic Neurologic: Denies behavioral changes, Denies confusion, Denies dizziness, Denies frequent falls, Denies loss of vision, Denies numbness and Denies weakness Psychiatric Psychiatric: Denies anxiety, Denies behavioral changes, Denies confusion, Denies depression, Denies homicidal ideation and Denies suicidal ideation Endocrine Endocrine: Denies fatigue, Denies flushing and Denies palpitations Hematologic/Lymphatic Hematologic/Lymphatic: Denies easy bruising Allergic/Immunologic Allergic/Immunologic: Denies urticaria, Denies throat swelling and Denies wheezing Patient History <Duran Swan PA-C - Last Filed: 03/02/24 18:39> Medical History Low back pain Piriformis syndrome of left side Strep pharyngitis Social History Smoking Status: Current every day smoker Smoking Status: Current every day smoker tobacco type: vaping alcohol intake frequency: a few times a week Substance Use Type: does not use Exam <HAJA Kennedy Last Filed: 03/02/24 18:39> Narrative Exam Narrative: Const General:?cooperative, healthy appearing and comfortable [facility] Head:?normal to inspection Ears:?hearing grossly normal bilaterally Nose:?external nose normal Face and sinus:?normal facial exam and sinuses nontender Mouth:?oral mucosae normal Throat:?posterior oropharynx normal Eyes General:?appearance normal, both eyes and all related structures Neck Normal visual inspection and no lymphadenopathy noted Resp Effort & Inspection:?normal respiratory effort Auscultation:?clear to auscultation bilaterally Cardio Rate:?regular rate Rhythm:?regular rhythm Musculoskeletal No midline tenderness to palpation. No paraspinal tenderness to palpation. Gait is normal. Full range of motion. Strength and sensation is intact. Patient is neurovascularly intact. Neuro General:?patient alert, patient awake and patient oriented x3 Initial Vital Signs Initial Vital Signs: Vital Signs Temperature 97.1 F L 02/25/24 14:15 Pulse Rate 74 02/25/24 14:15 Respiratory Rate 16 02/25/24 14:15 Blood Pressure 136/79 02/25/24 14:15 Pulse Oximetry 99 02/25/24 14:15 Oxygen Delivery Method Room Air 02/25/24 14:15 <Feroz Sneed MD - Last Filed: 03/08/24 02:39> Initial Vital Signs Initial Vital Signs: Vital Signs Temperature 97.1 F L 02/25/24 14:15 Pulse Rate 74 02/25/24 14:15 Respiratory Rate 16 02/25/24 14:15 Blood Pressure 136/79 02/25/24 14:15 Pulse Oximetry 99 02/25/24 14:15 Oxygen Delivery Method Room Air 02/25/24 14:15 Course <Duran Swan PA-C - Last Filed: 03/02/24 18:39> Orders Ordered: Discontinued Medications Ketorolac Tromethamine (Ketorolac 30 Mg/Ml Vial) 30 mg IM NOW ONE Stop: 02/25/24 16:05 Last Admin: 02/25/24 16:10 Dose: 30 mg Documented By: CARLEY Lidocaine (Lidocaine 5% Patch) 1 each TOP NOW ONE Stop: 02/25/24 16:05 Last Admin: 02/25/24 16:10 Dose: 1 each Documented By: CARLEY <Feroz Sneed MD - Last Filed: 03/08/24 02:39> Orders Ordered: Discontinued Medications Ketorolac Tromethamine (Ketorolac 30 Mg/Ml Vial) 30 mg IM NOW ONE Stop: 02/25/24 16:05 Last Admin: 02/25/24 16:10 Dose: 30 mg Documented By: CARLEY Lidocaine (Lidocaine 5% Patch) 1 each TOP NOW ONE Stop: 02/25/24 16:05 Last Admin: 02/25/24 16:10 Dose: 1 each Documented By: CARLEY MDM - Back Pain/Injury <Duran Swan PA-C - Last Filed: 03/02/24 18:39> MDM Narrative Medical decision making narrative: 28-year-old female with no reported past medical history presents to the ED with 1 day of left-sided lower back pain. Physical exam is reassuring for no midline tenderness to palpation or paraspinal tenderness to palpation. Patient's symptoms are most consistent with a musculoskeletal sprain/strain of the back. Patient was given an injection of Toradol and a lidocaine patches applied. Patient prescribed a muscle relaxant. Recommend follow-up with PCP. ED return precautions discussed with patient. Patient verbalized understanding. Medical records reviewed: Yes Discharge Plan Departure Patient Disposition: Home Clinical Impression: Back pain Qualifiers: Back pain location: low back pain Chronicity: acute Back pain laterality: left Sciatica presence: with sciatica Sciatica laterality: sciatica of left side Qualified Code(s): M54.42 - Lumbago with sciatica, left side Instructions: DI for Back Pain With Sciatica Activity Restrictions/Additional Instructions: You were evaluated in the ED today for lower back pain. It appears that you have a back spasm from a musculoskeletal sprain/strain of your back. You were given a injection of Toradol in the ED today. A lidocaine patch was also applied. You may continue taking 800 mg of ibuprofen every 8 hours with food. You may also take 1000 mg of Tylenol every 8 hours. You may also use lidocaine patches which are available [id number] and drug stores. You were being prescribed a muscle relaxant for pain relief. Please note that the muscle relaxant can make you sleepy, therefore please refrain from driving, operating machinery, swimming when taking the medicine. Prescriptions: No Action acetaminophen 325 MG tablet 1,000 mg PO TID PRN (Reason: pain / fever) Qty: 0 oxycodone-acetaminophen [Percocet] 5-325 mg tablet 1 tab PO Q8H PRN (Reason: pain) Qty: 14 0RF ondansetron HCl [Zofran] 4 mg tablet 4 mg PO Q8H PRN (Reason: nausea and vomiting) Qty: 20 0RF Referrals: ProviderKarissa [Primary Care Provider] - Stand Alone Forms: Patient Portal/API ED Sign-out <Feroz Sneed MD - Last Filed: 03/08/24 02:39> Cosign ED Attending Cosmigdaliaature Attestation: I was immediately available in the department for consultation. This documentation has been reviewed and I agree with assessment and plan. Supervised by Feroz Sneed MD
== END 2024-02-25 16:19 | disposition home or self-care (01) ==
PROVIDERS: Emergency Provider Student in an Organized Health Care Education/Training Program
DX: M54.42 Lumbago with sciatica, left side (principal)
CPT/HCPCS: 96372; 99283; J1885

== ENCOUNTER → 2024-08-30 09:37 | Outpatient (CLI) | payer OTHER, SELFPAY ==
--- NOTE | 2024-08-30 | DI.MRI.S_ITS ---
PROCEDURE: MR HEAD/BRAIN WO CON INDICATIONS: HEADACHE SYNDROME TECHNIQUE: Noncontrast axial T1 spin echo, axial T2 fast spin echo, sagittal and axial FLAIR, coronal T2 fast spin echo, axial gradient echo, axial diffusion and ADC through the brain. COMPARISON: None. FINDINGS: Image quality: Excellent. CSF Spaces: Basal cisterns are patent. No extra-axial fluid collections. Ventricles are normal in size and shape. Brain: No intracranial masses or hemorrhage. Falcon/white matter interface is normal. Brainstem appears normal. Diffusion-weighted images demonstrate no acute infarct. No chronic ischemic insults. Normal intravascular flow voids are present. Skull and face: Calvarium has normal marrow signal. Orbits appear normal. Sinuses: Sinuses and mastoids are clear. IMPRESSION: 1. No acute intracranial process. Dictated by: Tawana Varela M.D. on 08/31/2024 at 16:04 Approved by: Tawana Varela M.D. on 08/31/2024 at 16:05
== END ==
LOC: MRI 09:38
DX: G44.89 Other headache syndrome (principal)
CPT/HCPCS: 70551